=== PATIENT | male | born 1935 | race Caucasian/White ===

== ENCOUNTER 2024-01-27 13:03 | Observation (INO) | payer MEDICARE, SELFPAY ==
[2024-01-27] VITALS (17 sets, daily range): BP systolic 61–119; BP diastolic 38–87; PULSE 104–124; RESP 14–27; TEMP 36.3–36.8; O2SAT 90–96; BMI 33.4
--- NOTE | 2024-01-27 13:03 | XR_ITS ---
WS: [id number] XR chest 1V portable [id number] REASON FOR EXAM: cp FINDINGS: Status post aorto coronary artery bypass surgery. The heart is moderately enlarged. Moderate tortuosity of the thoracic aorta. Calcified granulomas disease bilaterally. There is increased opacity in the left lower hemithorax with obscuration of the left hemidiaphragm. W hile this could be a manifestation of pleural and pleural pericardial scarring, there are no old film s for comparison and airspace consolidation requires consideration. XR/XR chest 1V portable [id number] IMPRESSION: Cardiomegaly. Possible airspace consolidation as above which could represent atelectasis and/ or pneumonitis.
--- NOTE | 2024-01-27 13:04 | ECG_ITS ---
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 Measurements Intervals [place] Rate: 117 P: 39 MA: 184 QRS: -24 QRSD: 76 T: 60 QT: 329 QTc: 460 Interpretive Statements SINUS TACHYCARDIA MINIMAL VOLTAGE CRITERIA FOR LVH, CONSIDER NORMAL VARIANT [MEETS CRITERIA IN ONE OF: R(aVL), S(V1), R(V5), R(V5/V6)+S(V1)] INFERIOR MYOCARDIAL INFARCTION , PROBABLY OLD [40+ ms Q WAVE AND/OR ST/T ABNORMALITY IN II/aVF] No previous ECG available for comparison Electronically Signed On 01-27-2024 21:27:11 SAND SHOVELER by Irineo Mendes M.D. [id number]
--- NOTE | 2024-01-27 13:11 | CT_ITS ---
WS: [id number] CT HEAD TECHNIQUE: Noncontrast CT of the head obtained from the skullbase to the vertex. CLINICAL INFORMATION: ams COMPARISON: None. DLP: 1078.[address] scans at [facility] use at least one of these dose optimization techniques: automated e xposure control; mA and/or kV adjustment per patient size (includes targeted exams where dose is matc hed to clinical indication); or iterative reconstruction. FINDINGS: No evidence of intracranial hemorrhage or mass effect. Ventricular system and basal cisterns are galvez nt. Mild small vessel changes with mild parenchymal volume loss. No extra-axial fluid collections. No evidence of mass or mass effect. Cavernous carotid calcification. Mild mucosal thickening in the ethmoid air cells. Opacification the RIGHT mastoid air cells. LEFT mas toid air cells are well aerated. CT/CT head wo con* [id number] IMPRESSION: 1. No evidence of intracranial hemorrhage or mass effect. 2. Mild mucosal thickening in the ethmoid air cells. Partial opacification of the RIGHT mastoid air cells. 3. Dense vascular calcification. 4. No acute intracranial findings.
--- NOTE | 2024-01-27 13:19 | ED_ITS ---
HPI - Chest Pain 2 General: Chief Complaint: Chest Pain Stated Complaint: Chest Pain Time Seen by Provider: 01/27/24 13:03 Source: EMS Mode of arrival: EMS Limitations: altered mental status History of Present Illness: 88-year-old male here with EMS with alte red mental status along with chest pain. EMS states that they got a call to his home for chest pain they state when they arrived he was quite altered is unsure why he been called EMS. Per EMS patient has no family lives alone patient states he has no family. He has never been here in the past he states he does not really member having chest pain he is unable to answer many my questions he knows his name but is confused on time does not know any of his medical history. He has no slurred speech Related Data Home Medications Medication Instructions Recorded Confirmed amlodipine 10 mg tablet 10 mg PO QAM 01/27/24 01/27/24 atorvastatin 40 mg tablet 40 mg PO DAILY 01/27/24 01/27/24 finasteride 5 mg tablet 5 mg PO DAILY 01/27/24 01/27/24 omeprazole 20 mg capsule,delayed 20 mg PO DAILY 01/27/24 01/27/24 release tamsulosin 0.4 mg capsule 0.4 mg PO DAILY 01/27/24 01/27/24 Allergies Allergy/AdvReac Type Severity Reaction Status Date / Time No Known Allergies Allergy Unverified 01/27/24 13:36 Review of Systems 2 General: Reports: ROS unobtainable due to mental status Physical Exam 2 Const: COMMON NORMALS: negative for patient oriented x3 EXAM LIMITATIONS: a ltered mental status ORIENTATION/CONSCIOUSNESS: Yes oriented to person; not oriented to place and not oriented to time HENMT: COMMON NORMALS: normocephalic and atraumatic HEAD & SCALP: n ormocephalic and atraumatic Eye: COMMON NORMALS: Equal, round and reactive pupils present and EOMs intact bilaterally PUPIL: Yes Equal, round and reactive pupils present Neck/C-Spine: COMMON NORMALS: full ROM and supple Chest: COMMONS NORMALS: normal palpation of entire chest wall OTHER: likely cabg scar noted to chest Resp: COMMON NORMALS: normal respiratory effort, No retractions, No use of accessory muscles and clear to auscultation bilaterally AUSCULTATION: clear to auscultation bilaterally Cardio: COMMON NORMALS: regular rhythm and No murmurs present (Cardio) R ATE: tachycardic RHYTHM: regular rhythm GI: COMMON NORMALS: Normal to inspection, nondistended, normoactive bowel sounds present, Soft to palpation, non-tender and no masses PALPATION: Yes Soft to palpation Extremity: COMMON NORMALS: normal to inspection and full ROM Neuro: COMMON NORMALS: moves all extremities and no focal motor deficits; negative for patient oriented x3 SENSORIUM/ORIENTATION: Yes oriented to person, No oriented to place and No oriented to time CRANIAL NERVES: Yes CN normal except as noted SPEECH: speech normal MOTOR EXAM: 5/5 motor strength present throughout Psych: COMMON NORMALS: mental status grossly normal, Normal thought process present and cooperative THOUGHT PROCESS: Normal thought process present Skin: COMMON NORMALS: no rashes or lesions noted and no wounds GENERAL SKIN EXAM: no rashes or lesions noted Course 2 Vital Signs: Vital signs: Vital Signs Temperature 98.3 F 01/27/24 13:07 Pulse Rate 123 H 01/27/24 18:22 Respiratory Rate 24 H 01/27/24 18:22 Blood Pressure 119/87 01/27/24 18:22 Pulse Oximetry 90 01/27/24 18:22 Oxygen Delivery Me thod Nasal Cannula 01/27/24 18:22 Oxygen Flow Rate 3 01/27/24 18:22 MDM - Chest Pain Medical Decision Making Patient presents for chest pain he was originally altered he is now awake alert answering my questions appropriately I spoke to the CT surgeon at [facility] who stated the discharge would be very risky and she recommended not doing it I did speak to patient at length and he states that he would not want the surgery anyways he wants to be placed on hospice I spoke to hospitalist will admit patient so he can place on hospice at this time. Medical Records I reviewed the patient's medical records. Lab Data I reviewed the patient's lab results. 01/27/24 13:28 01/27/24 13:28 Radiology Impressions Chest X-Ray 01/27/24 13:03 IMPRESSION: Cardiomegaly. Possible airspace consolidation as above which could represent atelectasis and/or pneumonitis. Head CT 01/27/24 13:11 IMPRESSION: 1. No evidence of intracranial hemorrhage or mass effect. 2. Mild mucosal thickening in the ethmoid air cells. Partial opacification of the RIGHT mastoid air cells. 3. Dense vascular calcification. 4. No acute intracranial findings. Chest CTA 01/27/24 15:35 IMPRESSION: 1. Sylva type A aortic dissection. Details above. 2. 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 Details above. 3. No CT evidence of pulmonary embolism. 4. Moderate subcarinal and mild bilateral pulmonary hilar lymphadenopathy. No other lymphadenopathy. 5. Additional details as above. ADDENDUM: 01/27/24 [id number] ADDENDUM: The [facility] operation center contacted me at 4:52 p.m. central time on January 27, [address] Durant has read this report, is aware of the findings, and has no questions regarding them. He requires no conversation with me at this time. Laboratory Results WBC 15.79 10^3/uL (3.29-11.43) H 01/27/24 13:28 RBC 4.45 10^6/uL (3.85-5.65) 01/27/24 13:28 Hgb 13.60 g/dL (11.27-16.99) 01/27/24 13:28 Hct 40.8 % (37-53) 01/27/24 13:28 MCV 91.7 fl (82-101) 01/27/24 13:28 MCH 30.6 pg (27-33) 01/27/24 13:28 MCHC 33.3 g/dL (30-55) 01/27/24 13:28 RDW 12.4 % (12.1-15.1) 01/27/24 13:28 Plt Count 196 10^3/cmm (157-399) 01/27/24 13:28 MPV 10.9 fL (7.4-10.4) H 01/27/24 13:28 Neut % (Auto) 83.3 % 01/27/24 13:28 Lymph % (Auto) 8.4 % 01/27/24 13:28 [place] % (Auto) 7.4 % 01/27/24 13:28 Eos % (Auto) 0.1 % 01/27/24 13:28 Baso % (Auto) 0.2 % 01/27/24 13:28 Neut # (Auto) 13.16 10^3/uL (1.8-7.7) H 01/27/24 13:28 Lymph # (Auto) 1.3 10^3/uL (0.8-4.8) 01/27/24 13:28 [place] # (Auto) 1.2 10^3/uL (0.2-0.9) H 01/27/24 13:28 Eos # (Auto) 0.0 10^3/uL (0.0-0.8) 01/27/24 13:28 Baso # (Auto) 0.0 10^3/uL (0.0-0.1) 01/27/24 13:28 Nucleated RBC % (auto) 0 % 01/27/24 13:28 Nucleated RBCs # 0.0 /100WBC 01/27/24 13:28 PT 13.40 SECONDS (12.1-14.9) 01/27/24 13:28 INR 0.99 (0.8-1.2) 01/27/24 13:28 D-Dimer 2.92 ug/mLFEU (0-0.59) H 01/27/24 13:28 Sodium 135 mmol/L (136-145) L 01/27/24 13:28 Potassium 3.6 mmol/L (3.5-5.1) 01/27/24 13:28 Chloride 94 mmol/L (98-107) L 01/27/24 13:28 Carbon Dioxide 27 mmol/L (22-29) 01/27/24 13:28 Anion Gap 17.6 (5-19) 01/27/24 13:28 BUN 9 mg/dL (8-23) 01/27/24 13:28 Creatinine 0.9 mg/dL (0.7-1.2) 01/27/24 13:28 GFR Calculation Not Reportable 01/27/24 13:28 Glucose 175 mg/dL (65-115) H 01/27/24 13:28 Calculated Osmolality 283 mOsm/kg (285-295) L 01/27/24 13:28 Lactic Acid 2.9 mmol/L (0.5-2.2) H 01/27/24 13:59 Lactic Acid (Sepsis) 4.5 mmol/L (0.5-2.2) H* 01/27/24 17:28 Calcium 8.9 mg/dL (8.5-10.5) 01/27/24 13:28 Total Bilirubin 1.2 mg/dL (0.15-1.2) 01/27/24 13:28 AST 16 U/L (0-40) 01/27/24 13:28 ALT 16 U/L (0-41) 01/27/24 13:28 Alkaline Phosphatase 75 U/L (40-130) 01/27/24 13:28 Troponin T Baseline 82 ng/L (0-15) H 01/27/24 13:28 Troponin T 120 Minute 137.1 ng/L (0-15) H 01/27/24 15:53 Delta Troponin T 55.1 ABS# (0-10) H* 01/27/24 15:53 NT-Pro-B Natriuret Pep 665 pg/mL (0-450) H 01/27/24 13:28 Total Protein 6.2 g/dL (6.6-8.7) L 01/27/24 13:28 Albumin 4.1 g/dL (3.5-5.2) 01/27/24 13:28 Globulin 2.1 g/dL (1.3-4.6) 01/27/24 13:28 Lipase 16 U/L (13-60) 01/27/24 13:28 TSH 0.92 uIU/mL (0.27-4.20) 01/27/24 13:28 Urine Color Yellow (Yellow) 01/27/24 15:54 Urine Appearance Clear (CLEAR) 01/27/24 15:54 Urine pH 6.0 (5-7) 01/27/24 15:54 Ur Specific [place] 1.092 (1.005-1.030) H 01/27/24 15:54 Urine Protein 2+ (Negative) A 01/27/24 15:54 Urine Glucose (UA) Negative (Normal) 01/27/24 15:54 Urine Ketones Negative (Negative) 01/27/24 15:54 Urine Blood Non-haemolysed trace (Negative) 01/27/24 15:54 Urine Nitrate Negative (Negative) 01/27/24 15:54 Urine Bilirubin Negative (Negative) 01/27/24 15:54 Urine Urobilinogen 0.2 mg/dL (Negative) 01/27/24 15:54 Ur Leukocyte Esterase Negative (Negative) 01/27/24 15:54 Urine RBC 3-5 /hpf (0-2) 01/27/24 15:54 Urine WBC 0-5 /hpf (0-5) 01/27/24 15:54 Ur Squamous Epith Cells 0-5 /hpf (0-5) 01/27/24 15:54 Amorphous Sediment Not Reportable 01/27/24 15:54 Urine Bacteria None seen /hpf (NONE) 01/27/24 15:54 Hyaline Casts 2.05 /lpf 01/27/24 15:54 All radiology interpretation(s) finalized by discharge EKG Data EKG 1: I personally reviewed and interpreted this EKG as follows: EKG interpretation date: 01/27/24 EKG interpretation time: 13:08 Interpretation: sinus tach hr [address] elevation qrs 76 qtc 399 Critical Care Time 2 Critical Care Time: Critical Care Time: Yes Total Critical Care Time: 40 Attestation: The high probability of a clinically significant, sudden or life threatening deterioration of the patient's cv system(s) required my full and direct attention, intervention and personal management. The critical care time is as shown. This time is in addition to time spent performing any reported procedures but includes the following: [x] Data and vital sign review and interpretation [x] Patient assessment, examination and intervention [x] Documentation [x] Medication orders and management Discharge Plan Discharge Patient Disposition: Xfer Short-Term Hosp Clinical Impression: Altered mental status, Aortic dissection Condition: Stable Coding Level of Care Code ED Health Education Aide for Beryl Barba
[2024-01-27] MEDS: sodium chloride 0.9% 1,000 ML 999 ML IV ×2 (13:24→14:34)
--- NOTE | 2024-01-27 13:39 | CT_ITS ---
WS: [id number] CTA OF THE CHEST WITH PULMONARY EMBOLISM PROTOCOL TECHNIQUE: High-resolution contrast enhanced CTA of the chest with coronal and sagittal reformatted i mages with pulmonary embolism protocol. MIP images are also reviewed. CLINICAL INFORMATION: cp COMPARISON: None. DLP: 453.[address] scans at [facility] use at least one of these dose optimization techniques: automated e xposure control; mA and/or kV adjustment per patient size (includes targeted exams where dose is matc hed to clinical indication); or iterative reconstruction. FINDINGS: Images degraded due to imaging performed with arms at patient's side. Narrowing of the pulmonary trunk which appears to be extrinsic with smooth margins. The distal main p ulmonary arteries are patent. Increased soft tissue in this area measuring 4.3 x 2.9 cm difficult to further evaluate on this study. Increased soft tissue at the pulmonary trunk bifurcation. This also a ppears to compress the LEFT atrium. Consider FAWN in further evaluation. Severe narrowing of the proxi mal main pulmonary arteries RIGHT greater than LEFT. Distal main pulmonary arteries remain patent. Heterogeneous attenuation in the thoracic aorta may be due to mixing artifact versus dissection. Mando mmend CTA thoracic aorta and further evaluation. Some heterogeneous attenuation at the aortic root. R ecommend scan be performed with arms up. Chronic emphysematous changes. Pleural plaques LEFT lower lobe. Subsegmental atelectasis LEFT lower l obe. Adrenal glands are normal. Small esophageal hiatal hernia. Splenic artery calcifications. Segmental and subsegmental pulmonary arteries appear patent. CABG with prior bypass grafting. CT/CT angio chest PE protcl [id number] IMPRESSION: Images degraded due to beam hardening artifact from arms at side. P atient unable to raise arms above head for imaging 1. Severe narrowing of the main pulmonary trunk which appears compressed due t o extrinsic mass effect. Less likely this is intrinsic embolus. Severe narrowin g of the RIGHT proximal main pulmonary artery. Distal main pulmonary arteries a re patent. No evidence of distal embolus. Recommend further evaluation with FAWN . Some extrinsic considerations include tumor, lymphadenopathy, bypass graft or ruptured aneurysm, and hematoma 2. Diffuse heterogeneous attenuation in the thoracic aorta some of which may b e due to mixing artifact but dissection not excluded. Recommend further evaluat ion with CTA thoracic aorta 3. CABG with extensive bypass changes. 4. Advanced chronic emphysematous changes. Bibasilar atelectasis. 5. Small esophageal hiatal hernia. Notified Natali Durant MD at 01/27/2024 335PM.
--- NOTE | 2024-01-27 13:40 | PC.PHAR ---
Pt is not [facility]-he just gets medications mail order through [facility]. Pt states the doctor took him off lisinopril due to bp too low. Pt is only taking the Amlodipine 10 mg daily.
[2024-01-27 13:49] LABS: Basophils % 0.2 %; Eosinophils % 0.1 %; Hematocrit 40.8 % (37-53); Lymphocytes # 1.3 10^3/uL (0.8-4.8); Lymphocytes % 8.4 %; Mean Corpuscular HGB Conc 33.3 g/dL (30-55); Mean Corpuscular Hemoglobin 30.6 pg (27-33); Mean Corpuscular Volume 91.7 fl (82-101); Mean Platelet Volume 10.9 fL (7.4-10.4); Monocytes # 1.2 10^3/uL (0.2-0.9); Monocytes % 7.4 %; Neutrophils # 13.16 10^3/uL (1.8-7.7); Neutrophils % 83.3 %; Nucleated Red Blood Cells % 0 %; Platelet Count 196 10^3/cmm (157-399); Red Blood Count 4.45 10^6/uL (3.85-5.65); Red Cell Distribution Width 12.4 % (12.1-15.1); White Blood Count 15.79 10^3/uL (3.29-11.43)
[2024-01-27 14:02] LABS: INR 0.99 (0.8-1.2)
[2024-01-27 14:09] LABS: Troponin(5th) Baseline 82 ng/L (0-15)
[2024-01-27 14:17] LABS: Alanine Aminotransferase 16 U/L (0-41); Albumin Level 4.1 g/dL (3.5-5.2); Alkaline Phosphatase 75 U/L (40-130); Anion Gap 17.6 (5-19); Aspartate Amino Transferase 16 U/L (0-40); Blood Urea Nitrogen 9 mg/dL (8-23); Calcium 8.9 mg/dL (8.5-10.5); Carbon Dioxide 27 mmol/L (22-29); Chloride 94 mmol/L (98-107); Globulin 2.1 g/dL (1.3-4.6); Glucose 175 mg/dL (65-115); Lipase 16 U/L (13-60); Osmolality Calculated 283 mOsm/kg (285-295); Potassium 3.6 mmol/L (3.5-5.1); Sodium 135 mmol/L (136-145); Thyroid Stimulating Hormone 0.92 uIU/mL (0.27-4.20); Total Bilirubin 1.2 mg/dL (0.15-1.2); Total Protein 6.2 g/dL (6.6-8.7)
[2024-01-27 14:34] LABS: Lactic Sepsis W/Reflex 2.9 mmol/L (0.5-2.2)
[2024-01-27] MEDS: iohexol 350 mg/mL 500 mL Btl (per mL) IV ×2 (14:44→16:26)
[2024-01-27 14:57] LABS: NT Pro B Type Natriuretic Pept 665 pg/mL (0-450)
--- NOTE | 2024-01-27 15:04 | ECG_ITS ---
[employer] 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 Measurements Intervals [place] Rate: 112 P: 29 ND: 191 QRS: -16 QRSD: 77 T: 36 QT: 320 QTc: 437 Interpretive Statements SINUS TACHYCARDIA POSSIBLE LEFT ATRIAL ENLARGEMENT [-0.1mV P-WAVE IN V1/V2] LEFT VENTRICULAR HYPERTROPHY AND ST-T CHANGE [VOLTAGE CRITERIA PLUS ST/T ABNORMALITY] POSSIBLE ANTERIOR MYOCARDIAL INFARCTION , PROBABLY OLD [30 ms Q WAVE IN V3/V4, OR R < 0.2 mV IN V4] INFERIOR MYOCARDIAL INFARCTION , PROBABLY OLD [40+ ms Q WAVE AND/OR ST/T ABNORMALITY IN II/aVF] Compared to ECG 01/27/2024 13:08:46 ST (T wave) deviation now present Myocardial infarct finding still present Electronically Signed On 01-27-2024 21:47:13 FORECAST ANALYST by Irineo Mendes M.D. [id number]
--- NOTE | 2024-01-27 15:35 | CTR_ITS ---
PROCEDURE INFORMATION: Exam: CTA Chest With Contrast Exam date and time: 01/27/2024 3:57 PM Age: 88 years old Clinical indication: Chest wall pain; Prior surgery; Surgery date: 6+ months; Surgery type: Open heart; Additional info: Aneurysm TECHNIQUE: Imaging protocol: Computed tomographic angiography of the chest with contrast. Exam focused on the arteries. 3D rendering (Not supervised by radiologist): MIP and/or 3D reconstructed images were created by the technologist. Radiation optimization: All CT scans at this facility use at least one of these dose optimization techniques: automated exposure control; mA and/or kV adjustment per patient size (includes targeted exams where dose is matched to clinical indication); or iterative reconstruction. Contrast material: OMNIPAQUE 350; Contrast volume: 100 ml; Contrast route: INTRAVENOUS (IV); COMPARISON: CT angio chest PE protcl [id number] 01/27/2024 2:42 PM RADIATION DOSE METRICS: Total DLP (mGy-cm): 982.59 FINDINGS: Pulmonary arteries: Central pulmonary arteries are compressed by the large mediastinal hematoma or pseudoaneurysm, particularly the right main pulmonary artery which is greater than 70% diameter stenotic. No obvious hemodynamically significant stenosis of other compressed central pulmonary arteries. Pulmonary arteries are not dilated. There is no CT evidence of pulmonary embolism. Aorta: There is a Jose type A aortic dissection with proximal extent involving the non coronary cusp, and extending throughout the entire thoracic aorta, terminating in the left abdominal aorta at the superior margin of the left renal artery. 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 No aneurysmal dilatation of the remainder of the visualized aorta. The celiac axis arises from the true lumen, but may be 50-69% diameter stenotic. The SMA arises from the true lumen, but may be 50-69% diameter stenotic. Two right renal arteries and a single left renal artery are partially in the field of view, arise from the true lumen, and are not hemodynamically significantly stenotic. Great vessels from the aortic arch arise from the true lumen and are not hemodynamically significantly stenotic or involved in the dissection. The true lumen is densely opacified throughout and while narrowed by the dissection is not definitely hemodynamically significantly stenotic. The false lumen is faintly opacified with contrast throughout most of its course, but is more densely opacified as it courses along the left aspect of the upper abdominal aorta suggesting communication between the true and false lumen in the upper abdominal aorta on the left. The most distal few cm of the distal extent of the false lumen which terminates at the superior margin of the left renal artery appears thrombosed. Lungs: Scarring in the left lung apex. Small areas of scarring, atelectasis, and/or pneumonitis scattered elsewhere in the lungs. Pleural spaces: Tiny left pleural effusion. No pneumothorax or right pleural effusion. Moderate amount of benign left pleural calcification. Heart: Mild cardiomegaly. No evidence of right heart strain with the right ventricular to left ventricular ratio being 0.9. The left aspect of the left atrium and left pulmonary veins are compressed by the large mediastinal hematoma or pseudoaneurysm. Mediastinal space: There is a heterogeneous abnormality including large areas of contrast enhancement in the mediastinum situated inferior to the central pulmonary arteries, superior to the left aspect of the left atrium, and abutting the left aspect of the aortic root hand adjacent ascending thoracic aorta. This abnormality also abuts the left anterior descending coronary artery and some of its branches. The enhancement in portions of this suggests this is either a large growing hematoma or a partially thrombosed pseudoaneurysm. The likely source of this is the aortic root or proximal ascending thoracic aorta. Lymph nodes: Moderate subcarinal and mild bilateral pulmonary hilar lymphadenopathy. Bones/joints: Mild scoliosis. Mild and moderate multilevel spondylosis with partial spinal ankylosis. Metal sternal and manubrial sutures. Bilateral shoulder arthritis. Otherwise, unremarkable. Soft tissues: Otherwise, unremarkable visualized body wall. Otherwise, unremarkable soft tissues. Other findings: Otherwise, unremarkable visualized upper abdominal structures. CT/CT angio chest [id number] IMPRESSION: 1. [place] type A aortic dissection. Details above. 2. 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 Details above. 3. No CT evidence of pulmonary embolism. 4. Moderate subcarinal and mild bilateral pulmonary hilar lymphadenopathy. No other lymphadenopathy. 5. Additional details as above.
[2024-01-27 15:54] LABS: Reflex Lactate Order REFLEX LACTIC ORDERD
[2024-01-27 16:01] LABS: D Dimer 2.92 ug/mLFEU (0-0.59)
[2024-01-27 16:06] LABS: Bilirubin Urine Negative (Negative); Blood Urine Non-haemolysed trace (Negative); Glucose Urine UA Negative (Normal); Ketones Urine Negative (Negative); Leukocyte Esterase Urine Negative (Negative); Nitrate Urine Negative (Negative); Protein Urine 2+ (Negative); Urine Appearance Clear (CLEAR); Urine Color Yellow (Yellow); Urobilinogen Urine 0.2 mg/dL (Negative)
[2024-01-27 16:09] LABS: Add Urine Microscopic? YES; Bacteria Urine None Seen /hpf; Hyaline Casts Urine 2.05 /lpf; Squamous Epithelial Cell Urine 0-5 /hpf (0-5); WBC Urine 0-5 /hpf (0-5)
[2024-01-27] MEDS: piperacillin-tazobactam 3.375 GM in sodium chloride 0.9% (plus) 50 ML IV (16:11)
[2024-01-27] MEDS: VANCOMYCIN ADD-Vantage 1,000 MG in 0.9% NaCl ADD-Vantage 250 ML 250 MG IV (16:13)
[2024-01-27 16:21] LABS: Specific Gravity, Urine 1.092 (1.005-1.030)
[2024-01-27 16:28] LABS: Troponin 5 2HR 137.1 ng/L (0-15); Troponin 5 2HR Delta 55.1 ABS# (0-10)
[2024-01-27 18:03] LABS: Lactic Acid level (Lactate) 4.5 mmol/L (0.5-2.2)
[2024-01-27] MEDS: morphine 4 mg/mL SDV 1 mL IVP (18:26)
--- NOTE | 2024-01-27 18:27 | PM.HP ---
Providers/Chief Complaint Primary Care Provider: DAISHA Flanagan Chief Complaint: Chest Pain History of Present Illness This is a 88-year-old male with a past medical history of CABG, hypertension, hyperlipidemia, GERD, CAD who presents to [facility] due to altered mental status, chest pain, shortness of breath. Currently Mark is alert oriented x 3, following all commands, he tells me that [place], his friend whom he provides me the number with, is his neighbor and his close is confident. He does have a brother but he has not spoken to his brother in years, he has no other family. He tells me that what brought him to the hospital was chest discomfort, and he was confused, EMS was called out to his home due to chest discomfort. Currently he has mild chest painn, does have some shortness of breath is on 2 L, heart rates in the 120s, blood pressures 90s over 60, he is pale, diaphoretic, DP PT pulses diminished bilaterally, cap refill greater than 2 seconds, mottling up to the level of bilateral thighs, tachycardic. His lactic acid is 4.5, troponins 82, CTA shows [place] type a aortic dissection, with a large mediastinal hematoma or pseudoaneurysm causing compression of adjacent structures. ER provider had reached out to [facility] spoke to CT surgery, who stated that patient would be at high risk for surgery, recommended against surgery, ER provider spoke to patient, patient did not want surgery, he wanted to go home, wanted to go home on hospice, however cannot set up hospice for patient tonight. So I was called for admission. I had a detailed discussion with patient that that he has a type a aortic dissection, with what the radiologist describes a pseudoaneurysm or a large mediastinal hematoma. This diagnosis unfortunately is life ending, and terminal. Associated with high morbidity and mortality, associated with high degree suffering. I also briefly discussed with him about the possibility of surgery,for patient of a type a aortic dissection, which is associated with high surgical risk, given his age and his risk factors. He tells me no to surgery he just wants to go home and to be kept comfortable. I had a detailed discussion with him that I will make all efforts to try to get him home on hospice however tonight I think it will be not be possible. Hopefully in the morning I can get hospice set up for him, I just do not want him to go home without medications and for him to suffer at home without appropriate medications or help. My immediate concern would be is that he has a high risk of morbidity or mortality here in the hospital, high risk of suffering, and there is no other significant interventions that I can offer to him. But what I can offer for him is pain control, comfort care, as his condition is highly likely to deteriorate here in the hospital and he will have a high likelihood of dying here in the hospital. But as his wishes are not to have surgery, and his wishes not to do any significant interventions and just to be kept comfortable I would abide by his wishes and admit him to comfort care. I discussed with him what comfort care would entail, he voiced understanding, all questions answered he agrees to be kept comfortable and does not want to have any other significant interventions. I also at length had a discussion with him about what a type a aortic dissection is, the rest of the CT scan findings, he was able to understand, he is adamant that he just wants to be kept comfortable.I also discussed with Mark that given that he has a type a aortic dissection he has a high risk of cardiac event cardiac arrhythmia, cardiac tamponade, aortic regurg, VA, he voiced understanding, all questions answered, in any case he tells me he just wants to be kept comfortable, he does not want to have any significant interventions. I also spoke to patient's friend over the phone while patient was in the room, his friend is going to come tonight to be with him, and will hopefully pick him up tomorrow. I was also able to speak to his friend about his terminal condition, type aortic dissection, large mediastinal hematoma or pseudoaneurysm. Mark's wishes to not do surgery, Mark's wish to just be kept comfortable, Mark's wish to go home and be comfortable at home on hospice/comfort care. Review of Systems Const: Denies: fever(s) Card: Reports: chest pain Resp: Reports: dyspnea GI: Denies: abdominal pain Medications/Allergies Home Medications Medication Instructions Recorded Confirmed Last Taken Type amlodipine 10 mg tablet 10 mg PO QAM 01/27/24 01/27/24 01/27/24 History atorvastatin 40 mg tablet 40 mg PO DAILY 01/27/24 01/27/24 01/26/24 History finasteride 5 mg tablet 5 mg PO DAILY 01/27/24 01/27/24 01/26/24 History omeprazole 20 mg capsule,delayed 20 mg PO DAILY 01/27/24 01/27/24 Unknown History release tamsulosin 0.4 mg capsule 0.4 mg PO DAILY 01/27/24 01/27/24 01/26/24 History Allergies Allergy/AdvReac Type Severity Reaction Status Date / Time No Known Allergies Allergy Unverified 01/27/24 13:36 Vitals/I&O/Wt Last Vital Signs Temp 98.3 F 01/27/24 13:07 Pulse 123 H 01/27/24 18:22 Resp 24 H 01/27/24 18:22 BP 119/87 01/27/24 18:22 Pulse Ox 90 01/27/24 18:22 O2 Del Method Nasal Cannula 01/27/24 18:22 O2 Flow Rate 3 01/27/24 18:22 01/27/24 01/27/24 01/27/24 06:59 14:59 22:59 Intake Total 1000 / 1000 1300 / 2300 Balance 1000 / 1000 1300 / 2300 Weight last 48 hrs Weight 99.79 kg Physical Exam Const: COMMON NORMALS: no acute distress and patient oriented x3 GENERAL APPEARANCE: ill appearing and frail appearing Eye: COMMON NORMALS: Equal, round and reactive pupils present Resp: COMMON NORMALS: normal respiratory effort, No retractions, No use of accessory muscles and clear to auscultation bilaterally AUSCULTATION: crackles Cardio: COMMON NORMALS: regular rhythm, S1 normal heart sound present and S2 normal heart sound present RATE: tachycardic RHYTHM: regular rhythm HEART SOUNDS: S1 normal heart sound present and S2 normal heart sound present GI: COMMON NORMALS: Normal to inspection, nondistended, normoactive bowel sounds present, Soft to palpation and non-tender Extremity: COMMON NORMALS: no pedal edema OTHER: dp/pt pulses diminised, mottling up to thighs Neuro: COMMON NORMALS: patient oriented x3, CN's II-XII intact bilaterally and moves all extremities Sepsis: Focused sepsis exam performed: Yes Data 01/27/24 13:28 01/27/24 13:28 Micro: Microbiology 01/27/24 14:23 Blood Culture - Preliminary Blood SPECIMEN COLLECTED 01/27/24 14:20 Blood Culture - Preliminary Blood SPECIMEN COLLECTED A&P Assessment and plan (1) Dissecting aneurysm of thoracic aorta, [place]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 [place] type A aortic dissection. Details above. 2. 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 Details above. 3. No CT evidence of pulmonary embolism. 4. Moderate subcarinal and mild bilateral pulmonary hilar lymphadenopathy. No other lymphadenopathy. 5. Additional details as above. -nstemi -lactic acidosis PLAN: -Admit to comfort care Attestations Medical Necessity Statement*: Patient requires hospitalization, outpatient observation, for [place] type a aortic dissection, with large mediastinal hematoma or pseudoaneurysm, patient wants to proceed with comfort care/hospice Coding Level of Care Code Critical Care >/= 30 minutes Critical care time (in minutes): 45 The high probability of a clinically significant, sudden or life threatening deterioration, as referenced in this documentation, required my full and direct attention, intervention and personal management. The critical care time shown is in addition to time spent performing any reported separately billable procedures and includes the following: [x] Data and vital sign review and interpretation [x] Patient assessment, examination and intervention [x] Medication orders and management [x] Patient/Family updates as able [x] Care Coordination and Documentation. 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
--- NOTE | 2024-01-27 19:12 | PC.NURSE ---
report called to [facility] at 1910.
[2024-01-27] MEDS: HYDROmorphone 1 mg/mL INJ 1 mL 0.5 MG IVP (19:26)
[2024-01-27 20:00] LABS: Troponin 5 6HR 171.3 ng/L (0-15); Troponin 5 6HR Delta 89.3 ng/L (0-12)
[2024-01-27] MEDS: sodium chloride 0.9% 1,000 ML 75 ML IV (22:01)
[2024-01-27] MEDS: morphine 10 mg/0.5 mL oral liq UD SUBLINGUAL (22:01)
[2024-01-28] VITALS: BP 103/63; PULSE 102; RESP 17; TEMP 36.4; O2SAT 92
--- NOTE | 2024-01-28 02:36 | PC.NURSE ---
Addendum entered by Laurita Hernandez RN 01/28/24 06:06: MTS called back and pt has been released by MTS as well as saving sight due to age. Original Note: : Pt TOD at 0158, verified by 2 nurses. Specimen Accessioner and Physician notified. MTS notified, no contact information is listed in the chart to notify next of kin. [facility]
--- NOTE | 2024-01-28 02:47 | PC.NURSE ---
2 nurse verification of time of , 0158 with Gary Oropeza RN. Charge nurse, house painting instructor, and environmental resource specialist night hospitalist notified. MTS called by charge nurse to inform of patient expiration.
--- NOTE | 2024-01-28 06:06 | PC.NURSE ---
Pt taken to the [facility].
--- NOTE | 2024-01-28 06:08 | PC.NURSE ---
Addendum entered by Kim Campbell RN 01/28/24 06:14: clothing and glasses were also taken by territory supervisor when patient left the floor Original Note: DISCHARGE FROM [facility] FLOOR patient was taken by household appliance installer with assistance from security at 0608, this nurse removed pt wallet with schmidt from the pyxis and handed off those belongings to the household appliance installer to go down with the patient.
--- NOTE | 2024-01-28 06:12 | PC.NURSE ---
Morgue Time: 611 Belongings placed with pt in morgue. Sealed [place] envelope given to security for proper storage.
--- NOTE | 2024-01-28 07:14 | PC.NURSE ---
Security returned pt schmidt to pt belongings bag.
--- NOTE | 2024-01-28 07:27 | PM.DDS ---
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 Currently Mark is alert oriented x 3, following all commands, he tells me that he lives [place], his friend whom he provides me the number with, is his neighbor and his close is confident. He does have a brother but he has not spoken to his brother in years, he has no other family. He tells me that what brought him to the hospital was chest discomfort, and he was confused, EMS was called out to his home due to chest discomfort. Currently he has mild chest painn, does have some shortness of breath is on 2 L, heart rates in the 120s, blood pressures 90s over 60, he is pale, diaphoretic, DP PT pulses diminished bilaterally, cap refill greater than 2 seconds, mottling up to the level of bilateral thighs, tachycardic. His lactic acid is 4.5, troponins 82, CTA shows [place] type a aortic dissection, with a large mediastinal hematoma or pseudoaneurysm causing compression of adjacent structures. ER provider had reached out to [facility] spoke to CT surgery, who stated that patient would be at high risk for surgery, recommended against surgery, ER provider spoke to patient, patient did not want surgery, he wanted to go home, wanted to go home on hospice, however cannot set up hospice for patient tonight. So I was called for admission. I had a detailed discussion with patient that that he has a type a aortic dissection, with what the radiologist describes a pseudoaneurysm or a large mediastinal hematoma. This diagnosis unfortunately is life ending, and terminal. Associated with high morbidity and mortality, associated with high degree suffering. I also briefly discussed with him about the possibility of surgery,for patient of a type a aortic dissection, which is associated with high surgical risk, given his age and his risk factors. He tells me no to surgery he just wants to go home and to be kept comfortable. I had a detailed discussion with him that I will make all efforts to try to get him home on hospice however tonight I think it will be not be possible. Hopefully in the morning I can get hospice set up for him, I just do not want him to go home without medications and for him to suffer at home without appropriate medications or help. My immediate concern would be is that he has a high risk of morbidity or mortality here in the hospital, high risk of suffering, and there is no other significant interventions that I can offer to him. But what I can offer for him is pain control, comfort care, as his condition is highly likely to deteriorate here in the hospital and he will have a high likelihood of dying here in the hospital. But as his wishes are not to have surgery, and his wishes not to do any significant interventions and just to be kept comfortable I would abide by his wishes and admit him to comfort care. I discussed with him what comfort care would entail, he voiced understanding, all questions answered he agrees to be kept comfortable and does not want to have any other significant interventions. I also at length had a discussion with him about what a type a aortic dissection is, the rest of the CT scan findings, he was able to understand, he is adamant that he just wants to be kept comfortable.I also discussed with Mark that given that he has a type a aortic dissection he has a high risk of cardiac event cardiac arrhythmia, cardiac tamponade, aortic regurg, ID, he voiced understanding, all questions answered, in any case he tells me he just wants to be kept comfortable, he does not want to have any significant interventions. I also spoke to patient's friend over the phone while patient was in the room, his friend is going to come tonight to be with him, and will hopefully pick him up tomorrow. I was also able to speak to his friend about his terminal condition, type aortic dissection, large mediastinal hematoma or pseudoaneurysm. Mark's wishes to not do surgery, Mark's wish to just be kept comfortable, Mark's wish to go home and be comfortable at home on hospice/comfort care. Patient was admitted to [facility] for comfort care, plans on arranging outpatient comfort care/hospice, time of 01/28/2024 at 0158 Additional Data Confirmation of as documented by pronouncing clinician: no pulse, no respirations and no heart sounds Family: attempt made Additional persons at bedside: nursing staff Attending/PCP notified?: I am attending Was code activated?: No Autopsy requested?: No Advance directives?: Yes Discharge Plan Discharge Patient Disposition: Condition: DS Attestations Time Spent in /Discharge Care*: less than 30 min Quality - AMI: AMI present?: No Quality - Stroke: CVA present?: No Symptom Onset Unknown: No Quality - VTE: VTE present?: No Deep Vein Thrombosis/Pulmonary Embolism Present on Admission: No Coding Level of Care Code 31474 Total time (in minutes) for Discharge: 45 Diagnoses Dissecting aneurysm of thoracic aorta, [place]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
--- NOTE | 2024-01-28 15:53 | PC.NURSE ---
This nurse contacted Thanh([phone])- Patients friend and neighbor at 1300 on patients expiration. This nurse asked Thanh if he had any family members phone numbers that I could call and get in touch with regarding release of body/ home. Thanh stated No i don't, but i will take your number and have his other friend Fuad give you a call he may have them Fuad Baen the patients other friend called this nurse at [phone] he gave me the number of the patients Ex-Sister in Law Angy huitron ([phone]), but the number has been disconnected. This nurse called Fuad back at ([phone]) and asked if he had any other numbers he stated No but his brothers name is Asim Huitron and he lives in [place] and his nephew is Camron Huitron and he lives in [place]. This nurse then contacted Desmond Urena the [facility] for assistance and gave him all of the information i have received so far. Desmond Urena is now attempting to locate family members for this patient and will get back with us. He stated He will also get in contact with [facility] and [facility] to see if patient has a home already predetermined. He did let this nurse know that the patient will have to remain in the morgue at this time and if he is unable to locate family members he will be picking up patient by Friday01/30/24.
== END 2024-01-28 06:08 | disposition expired ==
LOC: ER 16:21 → MEDSURG 18:38
PROVIDERS: Admitting Provider Family Medicine; Emergency Provider Emergency Medicine; PCP Nurse Practitioner; Visit Provider Family Medicine
DX: I71.010 Dissection of ascending aorta (principal); Z51.5 Encounter for palliative care; Z95.1 Presence of aortocoronary bypass graft; I10 Essential (primary) hypertension; E78.5 Hyperlipidemia, unspecified; K21.9 Gastro-esophageal reflux disease without esophagitis; I25.10 Atherosclerotic heart disease of native coronary artery without angina pectoris
CPT/HCPCS: 36415; 70450; 71045; 71275; 80053; 81001; 83605; 83690; 83880; 84443; 84484; 85025; 85378; 85610; 87040; 93005; 96365; 96367; 96375; 99285; G0378; J1171; J2270; J2543; J3370; J7030; J7050